=== PATIENT | female | born 1955 | race Caucasian/White ===

== ENCOUNTER 2016-06-16 13:07 | Emergency (ER) | payer OTHER ==
[~2016-06-16] VITALS: Ht 172.7 cm; Wt 95.1 kg
[2016-06-16 13:18] VITALS: TEMP 36.8; Ht 172.7 cm; Wt 95.1 kg
[2016-06-16] MEDS ORDERED: KETOROLAC TROMETHAMINE 30 MG/ML VIAL IV STA (13:30)
[2016-06-16] MEDS ORDERED: SODIUM CHLORIDE 0.9% 1000ML 1,000 ML IV STA (13:30)
[2016-06-16] MEDS ORDERED: SULF500T8 PO (13:38)
[2016-06-16] MEDS ORDERED: LEVO50TA PO (13:38)
--- NOTE | 2016-06-16 13:38 | EMERGENCY ROOM VISIT NOTE ---
History Report prepared by Christopher: Kris Goldberg Under the Supervision of: Dr. Attila Aponte M.D. First contact with patient: 13:23 Chief Complaint: BACK PAIN Stated Complaint: SCIATICA History of Present Illness The patient is a 61 year old female who presents to the Emergency Room with complaints of left buttock pain that began 3 weeks ago. She rates her pain a 9/ 10 in severity. Over these past weeks, she has seen a chiropractor five times and was placed onto two rounds of Prednisone. Her pain has been persistent through all of this. Her pain radiates into her leg with numbness to her foot. He pain worsens with movement, but it feels better when she is standing. It also feels better when she applies heat to the area. She did not have any trauma at this time. She denies any numbness in her buttock, bowel or urine control loss, fevers, or urinary symptoms. She wakes up in the night with diaphoresis occasionally. She also is experiencing nausea. She has a past medical history of Crohn's disease that she states has been going very well. She has never had surgery for her Crohn's. Source of History: patient Onset: 3 weeks ago Position: other (Left buttock) Symptom Intensity: 9/10 Quality: sharp Timing: constant Modifying Factors (Worsening): movement Modifying Factors (Relieving): heat, other (Standing) Associated Symptoms: + diaphoresis, + nausea, + numbness (in left foot, not buttocks), No diarrhea, No fevers, No hematochezia, No melena, No urinary symptoms Review of Systems See HPI for pertinent positives & negatives. A total of 10 systems reviewed and were otherwise negative. Past Medical & Surgical Medical Problems: (1) Crohn's disease Surgical Problems: (1) H/O tubal ligation Old medical records were reviewed. Nurse's notes were reviewed and I agree with. Family History Patient reports no known family medical history. Social History Smoking Status: Former Smoker Alcohol Use: other (Rarely) Drug Use: none Marital Status: Housing Status: lives with family Occupation Status: employed Current/Historical Medications Scheduled Calcium/Vitamin D (Os-Wali 500 Plus D), 1 TAB PO DAILY Cholecalciferol (D 1000), 1 TAB PO DAILY Levothyroxine Sodium (Synthroid), 50 MCG PO DAILY Sulfasalazine (Sulfazine), 500 MG PO DAILY Vedolizumab (Entyvio), Unknown Dose INJ Q8WK Allergies Coded Allergies: Ciprofloxacin (Unverified Allergy, Severe, OTHER, 06/16/16) BLEW OUT ACHILLES TENDON Sulfa Antibiotics (Unverified Allergy, Severe, HEADACHES, 06/16/16) Uncoded Allergies: ALCOHOL WIPES (Adverse Reaction, Severe, RASH, 06/16/16) Physical Exam Vital Signs Date Time Temp Pulse Resp B/P Pulse Ox O2 Delivery O2 Flow Rate FiO2 06/16/16 17:58 66 18 159/93 96 06/16/16 17:12 67 18 148/87 96 06/16/16 16:02 74 18 128/87 93 Room Air 06/16/16 13:18 36.8 105 20 117/80 96 Room Air Physical Exam General: Non-ill appearing middle aged female, Well developed well nourished in no acute distress, breathing comfortably on room air. Normal speech HEENT: Normal cephalic atraumatic. Pupils are equal round and reactive to light. Extraocular movements are intact. Oropharynx is pink with moist mucous membranes. No swelling of the mouth lips or tongue. Neck: Supple with a midline trachea. No meningeal signs or stiffness, no JVD or bruits. No Stridor. Chest: Clear to auscultation bilaterally. No wheezes or rhonchi. No increased work of breathing. Heart: regular rate and rhythm. Abdomen: Soft nontender, nondistended without rebound guarding or rigidity. Extremities: Tenderness to palpation of left S/I joint. Pain with left leg raise. No calf tenderness. Spine/Back. Non tender to palpation. No CVA tenderness Skin: Good turgor without rashes. Neurologic exam: Cranial nerves two through 12 are intact. Motor and sensation are intact and symmetrical throughout. Medical Decision & Procedures ER Provider Diagnostic Interpretation: Radiology results as stated below per my review and radiologist interpretation: MRI LUMBAR SPINE COMBINATION CLINICAL HISTORY: Persistent back pain. Possible discitis. TECHNIQUE: Sagittal and axial T1, T2 and STIR images were obtained. Imaging was performed before and after administration of 9 cc of intravenous Gadavist COMPARISON STUDY: No previous studies for comparison. OBSERVATIONS: The vertebral bodies and posterior elements appear intact. There is no abnormal bony signal present to suggest a marrow replacement process. L1-2: No disc protrusions or extrusions. No evidence of spinal canal or neural foraminal compromise. L2-3: There is a circumferential disc bulge with mild spinal stenosis. There is no significant foraminal narrowing L3-4: There is a mild circumferential disc bulge. There is facet joint arthropathy. There is mild spinal stenosis. L4-5: No disc protrusions or extrusions. No evidence of spinal canal or neural foraminal compromise. L5-S1: There is a left posterior lateral disc protrusion. This abuts the exiting left S1 nerve root. No abnormalities of the conus are visualized. Postgadolinium images demonstrate diffuse enhancement of the left S1 nerve root IMPRESSION: 1. No evidence of discitis or osteomyelitis 2. Diffuse enhancement of the left S1 nerve root 3. Multilevel spondylitic changes with mild spinal stenosis at the L2-3 and L3-4 levels. 4. Small left posterior lateral disc protrusion at the L5-S1. This abuts the left S1 nerve root Electronically signed by: Jaime Robison M.D. 06/16/2016 3:18 PM Dictated Date/Time: 06/16/2016 3:11 PM Laboratory Results 06/16/16 13:50 Red Blood Count 4.42, Mean Corpuscular Volume 98.2, Mean Corpuscular Hemoglobin 32.4, Mean Corpuscular Hemoglobin Concent 32.9, Mean Platelet Volume 10.2, Neutrophils (%) (Auto) 73.5, Lymphocytes (%) (Auto) 16.3, Monocytes (%) (Auto) 8.8, Eosinophils (%) (Auto) 0.9, Basophils (%) (Auto) 0.2, Neutrophils # (Auto) 7.22, Lymphocytes # (Auto) 1.60, Monocytes # (Auto) 0.86, Eosinophils # (Auto) 0.09, Basophils # (Auto) 0.02 06/16/16 13:50 Test 06/16/16 13:50 06/16/16 14:01 06/16/16 14:05 White Blood Count 9.82 K/uL (4.8-10.8) Red Blood Count 4.42 M/uL (4.2-5.4) Hemoglobin 14.3 g/dL (12.0-16.0) Hematocrit 43.4 % (37-47) Mean Corpuscular Volume 98.2 fL (80-100) Mean Corpuscular Hemoglobin 32.4 pg (25-34) Mean Corpuscular Hemoglobin Concent 32.9 g/dl (32-36) Platelet Count 361 K/uL (130-400) Mean Platelet Volume 10.2 fL (7.4-10.4) Neutrophils (%) (Auto) 73.5 % Lymphocytes (%) (Auto) 16.3 % Monocytes (%) (Auto) 8.8 % Eosinophils (%) (Auto) 0.9 % Basophils (%) (Auto) 0.2 % Neutrophils # (Auto) 7.22 K/uL (1.4-6.5) Lymphocytes # (Auto) 1.60 K/uL (1.2-3.4) Monocytes # (Auto) 0.86 K/uL (0.11-0.59) Eosinophils # (Auto) 0.09 K/uL (0-0.5) Basophils # (Auto) 0.02 K/uL (0-0.2) RDW Standard Deviation 53.7 fL (36.4-46.3) RDW Coefficient of Variation 14.9 % (11.5-14.5) Immature Granulocyte % (Auto) 0.3 % Immature Granulocyte # (Auto) 0.03 K/uL (0.00-0.02) Anion Gap 5.0 mmol/L (3-11) Est Creatinine Clear Calc Drug Dose 75.0 ml/min Estimated GFR () 74.9 Estimated GFR (Non- 64.6 BUN/Creatinine Ratio 17.4 (10-20) Calcium Level 9.9 mg/dl (8.5-10.1) Total Bilirubin 0.7 mg/dl (0.2-1) Direct Bilirubin 0.2 mg/dl (0-0.2) Aspartate Amino Transf (AST/SGOT) 19 U/L (15-37) Alanine Aminotransferase (ALT/SGPT) 27 U/L (12-78) Alkaline Phosphatase 79 U/L (45-117) Total Protein 8.3 gm/dl (6.4-8.2) Albumin 4.1 gm/dl (3.4-5.0) Lipase 106 U/L (73-393) Bedside D-Dimer 420 ng/mlFEU (0-450) Urine Color DK YELLOW Urine Appearance CLEAR (CLEAR) Urine pH 6.0 (4.5-7.5) Urine Specific [place] 1.022 (1.000-1.030) Urine Protein TRACE (NEG) Urine Glucose (UA) NEG (NEG) Urine Ketones TRACE (NEG) Urine Occult Blood NEG (NEG) Urine Nitrite NEG (NEG) Urine Bilirubin NEG (NEG) Urine Urobilinogen NEG (NEG) Urine Leukocyte Esterase MODERATE (NEG) Urine WBC (Auto) 10-30 /hpf (0-5) Urine RBC (Auto) 0-4 /hpf (0-4) Urine Hyaline Casts (Auto) 10-30 /lpf (0-5) Urine Epithelial Cells (Auto) >30 /lpf (0-5) Urine Bacteria (Auto) NEG (NEG) Laboratory studies as stated above per my review. Medications Administered Medications (Trade) Dose Ordered Sig/Rivas Route Start Time Stop Time Status Last Admin Dose Admin Sodium Chloride (Nss 1000ml) 1,000 ml @ 999 mls/hr Q1H1M STAT IV 06/16/16 13:30 06/16/16 14:30 DC 06/16/16 13:30 999 MLS/HR Ketorolac Tromethamine (Toradol Inj) 30 mg NOW STAT IV 06/16/16 13:30 06/16/16 13:34 DC 06/16/16 14:04 30 MG ED Course 1323: Past medical records reviewed. The patient was evaluated in room C2, and a complete history and physical examination were performed. 1330: Ordered Toradol Inj 30 mg IV, Sodium Chloride 1000 ml @ 999 mls/hr IV 1518: The patient is back from MRI. She looks okay. 1743: Upon reevaluation, the patient is resting. I discussed the results and treatment plan with her. She verbalized agreement of the treatment plan. The patient was discharged home. Medical Decision Differentials include sciatica, lumbar disc disease, infection, complication related to Crohn's disease, DVT, and electrolyte or metabolic abnormality. This patient comes in as described above. She was placed in room C2. She's having left back/buttock pain going down her leg. She has been on 2 courses steroids and this did help her feel better somewhat. It just hurts when she moves . No numbness or weakness or fever or chills . She has a history of Crohn's disease but has had no complications related to this. Denies change in bowel or bladder function. IV access was established and blood work was obtained. She has no white count or electrolyte or metabolic abnormalities. Her d-dimer is within normal limits and a low pretest probability makes DVT highly unlikely. She is neurologically and neurovascularly intact. She did a MRI she does have a disc at L5-S1 there is some inflammation S1 nerve root which is likely reactive. I discussed his doctor Sonia and he says that he she can follow-up with him in the office next week or potentially see with a pain management providers as she could potentially benefit from injection. She' s can use NSAIDs and her pillowcase cutter go in and talk to her and they're going to try to get her in within the next day or so at [facility] for further treatment and evaluation of her back pain. Impression Primary Impression: Sciatica Additional Impression: Lumbar disc disease Scribe Attestation The scribe's documentation has been prepared under my direction and personally reviewed by me in its entirety. I confirm that the note above accurately reflects all work, treatment, procedures, and medical decision making performed by me. Departure Information Dispostion Home / Self-Care Referrals Attila Marmolejo M.D. (PCP) Forms HOME CARE DOCUMENTATION FORM, IMPORTANT VISIT INFORMATION Patient Instructions My [facility] Additional Instructions Rest Be careful when getting up and down. Return if: Worsening of symptoms, shortness of breath, numbness or weakness, fever or chills, change in bowel or bladder function , any new problems or concerns Use ibuprofen 400 mg every 6 hours, take with food Follow-up with [facility] spine either early this week or next. You may be a candidate for a nerve block or injection Problem Qualifiers
[2016-06-16] MEDS ORDERED: VEDO1INJ INJ (13:39)
[2016-06-16] MEDS ORDERED: CHOL1TAB53 PO (13:40)
[2016-06-16] MEDS ORDERED: CALC500C70 PO (13:41)
[2016-06-16 14:07] LABS: HEMATOCRIT 43.4 % (37-47); MEAN CELL VOLUME 98.2 fL (80-100); MEAN CORPUSCULAR HEMOGLOBIN 32.4 pg (25-34); MEAN CORPUSCULAR HGB CONC 32.9 g/dl (32-36); MEAN PLATELET VOLUME 10.2 fL (7.4-10.4); PLATELET COUNT 361 K/uL (130-400); RED BLOOD COUNT 4.42 M/uL (4.2-5.4); WHITE BLOOD COUNT 9.82 K/uL (4.8-10.8)
[2016-06-16 14:25] LABS: BUN/CREATININE RATIO 17.4 (10-20); CALCIUM 9.9 mg/dl (8.5-10.1); CREATININE 0.95 mg/dl (0.60-1.20); POTASSIUM 3.9 mmol/L (3.5-5.1)
[2016-06-16 14:33] LABS: URINE APPEARANCE CLEAR (CLEAR); URINE COLOR DK YELLOW; URINE EPITHELIAL CELL AUTO >30 /lpf (0-5); URINE NITRITE NEG (NEG); URINE SPECIFIC GRAVITY 1.022 (1.000-1.030); UROBILINOGEN NEG (NEG)
[2016-06-16 14:34] LABS: BASO % 0.2 %; BASO ABS # 0.02 K/uL (0-0.2); COMPLETE YES; EOS % 0.9 %; IG% 0.3 %; LYMPH % 16.3 %; MONO % 8.8 %; NEUT % 73.5 %
[2016-06-16 14:43] LABS: MANUAL MICROSCOPIC REQUIRED? NO; REVIEW REQ? NO; URINE BILIRUBIN NEG (NEG)
[2016-06-16] MEDS ORDERED: GADAVIST IV PRN (15:15)
--- NOTE | 2016-06-16 15:20 | DIAGNOSTIC IMAGING REPORT ---
MRI LUMBAR SPINE COMBINATION CLINICAL HISTORY: Persistent back pain. Possible discitis. TECHNIQUE: Sagittal and axial T1, T2 and STIR images were obtained. Imaging was performed before and after administration of 9 cc of intravenous Gadavist COMPARISON STUDY: No previous studies for comparison. OBSERVATIONS: The vertebral bodies and posterior elements appear intact. There is no abnormal bony signal present to suggest a marrow replacement process. L1-2: No disc protrusions or extrusions. No evidence of spinal canal or neural foraminal compromise. L2-3: There is a circumferential disc bulge with mild spinal stenosis. There is no significant foraminal narrowing L3-4: There is a mild circumferential disc bulge. There is facet joint arthropathy. There is mild spinal stenosis. L4-5: No disc protrusions or extrusions. No evidence of spinal canal or neural foraminal compromise. L5-S1: There is a left posterior lateral disc protrusion. This abuts the exiting left S1 nerve root. No abnormalities of the conus are visualized. Postgadolinium images demonstrate diffuse enhancement of the left S1 nerve root IMPRESSION: 1. No evidence of discitis or osteomyelitis 2. Diffuse enhancement of the left S1 nerve root 3. Multilevel spondylitic changes with mild spinal stenosis at the L2-3 and L3-4 levels. 4. Small left posterior lateral disc protrusion at the L5-S1. This abuts the left S1 nerve root Electronically signed by: Jaime Robison M.D. 06/16/2016 3:18 PM Dictated Date/Time: 06/16/2016 3:11 PM
[2016-06-16 17:58] VITALS: BP 159/93; PULSE 66; O2SAT 96
[2016-06-29] MEDS ORDERED: KETO10TA PO (14:19)
[2016-06-29] MEDS ORDERED: HYDR-5688 PO (14:19)
== END 2016-06-16 17:58 | disposition home or self-care (01) ==
LOC: C.EDB 13:08 → C.EDC 17:58
DX: M54.30 Sciatica, unspecified side (principal); M51.36 Other intervertebral disc degeneration, lumbar region; K50.90 Crohn's disease, unspecified, without complications; Z98.51 Tubal ligation status; Z87.891 Personal history of nicotine dependence; Z79.899 Other long term (current) drug therapy; Z88.2 Allergy status to sulfonamides

== ENCOUNTER 2017-03-12 10:08 | Emergency (ER) | payer OTHER ==
[~2017-03-12] VITALS: Ht 172.7 cm; Wt 90.0 kg
[~2017-03-12 10:08] MED LIST: CALC500C70 PO; CHOL1TAB53 PO; LEVO50TA PO; SULF500T8 PO; VEDO1INJ INJ
[2017-03-12 10:12] VITALS: TEMP 36.6; Ht 172.7 cm; Wt 90.0 kg
[2017-03-12] MEDS ORDERED: AZAT50TA17 PO (10:29)
--- NOTE | 2017-03-12 10:56 | EMERGENCY ROOM VISIT NOTE ---
History Report prepared by Jonathanibe: Emely Morejon Under the Supervision of: Dr. Yovanny Dominguez M.D. First contact with patient: 10:20 Chief Complaint: KNEEPAIN Stated Complaint: FELL ON ICE AT WORK,RIGHT KNEE PAIN History of Present Illness The patient is a 62 year old female who presents to the Emergency Room with complaints of constant right knee pain since 0840 this morning. She states she slipped on ice this morning while walking into work and twisted her right knee. She rates her current discomfort as a 10/10 in severity. Movement worsens her discomfort and ice has provided minimal relief. She denies hitting her head or any LOC during the fall. The patient also denies any neck pain or abdominal pain. Source of History: patient Onset: 08 this morning Position: knee (right) Symptom Intensity: 11/16 Timing: constant Modifying Factors (Worsening): movement Modifying Factors (Relieving): ice Associated Symptoms: No LOC, No neck pain, No abdominal pain Review of Systems See HPI for pertinent positives and negatives. A total of ten systems were reviewed and were otherwise negative. Past Medical & Surgical Medical Problems: (1) Crohn's disease Surgical Problems: (1) H/O tubal ligation Family History Patient reports no known family medical history. Social History Smoking Status: Former Smoker Alcohol Use: other Drug Use: none Marital Status: Housing Status: lives with family Occupation Status: employed Current/Historical Medications Scheduled Azathioprine (Imuran), 0 PO QAM Cholecalciferol (D 1000), 1 TAB PO QAM Levothyroxine Sodium (Synthroid), 50 MCG PO QAM Sulfasalazine (Sulfazine), 500 MG PO QAM Vedolizumab (Entyvio), Unknown Dose INJ Q8WK Scheduled PRN Oxycodone Hcl (Oxycodone Hcl), 1 CAP PO QID PRN for Pain Allergies Coded Allergies: Ciprofloxacin (Unverified Allergy, Severe, OTHER, 03/12/17) BLEW OUT ACHILLES TENDON Sulfa Antibiotics (Unverified Allergy, Severe, HEADACHES, 03/12/17) Uncoded Allergies: ALCOHOL WIPES (Adverse Reaction, Severe, RASH, 06/16/16) Physical Exam Vital Signs Date Time Temp Pulse Resp B/P (MAP) Pulse Ox O2 Delivery O2 Flow Rate FiO2 03/12/17 11:47 62 18 148/85 96 03/12/17 10:12 36.6 73 17 143/90 98 Room Air Physical Exam GENERAL: Awake, alert, uncomfortable-appearing, in no distress HENT: Normocephalic, atraumatic. Oropharynx unremarkable. EYES: Normal conjunctiva. Sclera non-icteric. NECK: Supple. No nuchal rigidity. FROM. No JVD. RESPIRATORY: Clear to auscultation. CARDIAC: Regular rate, normal rhythm. Extremities warm and well perfused. Pulses equal. ABDOMEN: Soft, non-distended. No tenderness to palpation. No rebound or guarding. No masses. RECTAL: Deferred. MUSCULOSKELETAL: Chest examination reveals no tenderness. The back is symmetrical on inspection without obvious abnormality. There is no CVA tenderness to palpation. No joint edema. LOWER EXTREMITIES: Tenderness on the medial and lateral aspects of the right patella, mild edema, active and passive ROM intact, but causes pain. Distal pulses, motor and sensory intact. Calves are equal size bilaterally and non- tender. No discoloration. NEURO: Normal sensorium. No sensory or motor deficits noted. SKIN: No rash or jaundice noted. Medical Decision & Procedures ER Provider Diagnostic Interpretation: Radiology results as stated below per my review and radiologist interpretation: R KNEE 3 VIEWS CLINICAL HISTORY: Right knee pain following fall. COMPARISON: None FINDINGS: Note is made of moderate lateral patellar tilt. There is a large right knee joint effusion with lipohemarthrosis. There is an acute minimally displaced fracture of the medial aspect of the patella. No additional fractures are identified. IMPRESSION: Acute minimally displaced fracture of the medial patella with lateral patellar tilt and a large right knee joint effusion with lipohemarthrosis. The findings suggest a transient lateral patellar dislocation with reduction and resultant osteochondral injury of the patella. Electronically signed by: Bar Hauser M.D. 03/12/2017 10:59 AM Medications Administered Medications (Trade) Dose Ordered Sig/Rivas Route Start Time Stop Time Status Last Admin Dose Admin Oxycodone/ Acetaminophen (Percocet 5-325mg Tab) 1 tab NOW ONCE PO 03/12/17 11:00 03/12/17 11:02 DC 03/12/17 11:13 1 TAB ED Course 1051: The patient was evaluated in room B11A. A complete history and physical exam was performed. 1140: I reevaluated the patient. She is feeling better and resting comfortably. I discussed her results and discharge instructions and she verbalized complete understanding and agreement. Medical Decision I reviewed the patient's past medical history, medications, and the nursing notes as described above. The patient's presentation and history were concerning for fracture, dislocation -relocation of the patella, ligamentous injury and soft tissue injury. The patient is a 62 y/o woman who presents to the emergency department with right knee pain after a mechanical fall on ice per HPI. On arrival the patient is in NAD, AFVSS. Right knee with medial and lateral ttp with mild edema. Pain with active and passive ROM. Distal PMS intact. Xray demonstrates "minimally displaced fracture of the medial patella ...and large right knee joint effusion with lipohemarthrosis" c/w patellar dislocation-relocation. Patient is able to extend at the knee albeit painful. Plan for knee immobilizer and walker. Ortho f/u. Findings and plan for follow-up reviewed with patient. Patient agreeable and d/c'd per discharge instructions. [place] Drug Monitoring Program Search Results: patient reviewed within database Drug Monitoring Findings: no concerns Medication Reconcilliation Current Medication List: was personally reviewed by me Blood Pressure Screening Patient's blood pressure: Elevated blood pressure Blood pressure disposition: Elevated BP felt to be situational Impression Primary Impression: Patellar fracture Scribe Attestation The scribe's documentation has been prepared under my direction and personally reviewed by me in its entirety. I confirm that the note above accurately reflects all work, treatment, procedures, and medical decision making performed by me. Departure Information Dispostion Home / Self-Care Prescriptions Oxycodone Hcl (OXYCODONE HCL) 5 Mg Cap 1 CAP PO QID Y for Pain, #10 CAP Prov: Yovanny Dominguez M.D. 03/12/17 Referrals No Doctor, Assigned (PCP) Lorenzo Biggs, DO Patient Instructions ED Fx Patella, ED Immobilizer Knee, My [facility] Additional Instructions Please follow up with orthopedics, Dr. Biggs, on Tuesday for re-evaluation. You have a patellar fracture. Otherwise, your exam and xray did not show signs of an emergent condition at this time. Acetaminophen or ibuprofen for pain and fevers as needed. Knee immobilizer. Oxycodone from breakthrough pain as needed. Drink plenty of fluids to ensure hydration. Return to the emergency department for worsening symptoms as described in the accompanying instructions. Work Instructions Return To Work: 1 week Additional Instructions: Please excuse from work or allow modified duties for 1 week and thereafter as indicated by patient's doctor.
[2017-03-12] MEDS ORDERED: OXYCODONE/ACETAMINOPHEN 5-325 TAB PO ONE (11:00)
--- NOTE | 2017-03-12 11:01 | DIAGNOSTIC IMAGING REPORT ---
R KNEE 3 VIEWS CLINICAL HISTORY: Right knee pain following fall. COMPARISON: None FINDINGS: Note is made of moderate lateral patellar tilt. There is a large right knee joint effusion with lipohemarthrosis. There is an acute minimally displaced fracture of the medial aspect of the patella. No additional fractures are identified. IMPRESSION: Acute minimally displaced fracture of the medial patella with lateral patellar tilt and a large right knee joint effusion with lipohemarthrosis. The findings suggest a transient lateral patellar dislocation with reduction and resultant osteochondral injury of the patella. Electronically signed by: Bar Hauser M.D. 03/12/2017 10:59 AM Dictated Date/Time: 03/12/2017 10:56 AM
[2017-03-12 11:47] VITALS: BP 148/85; PULSE 62; O2SAT 96
[2017-03-12] MEDS ORDERED: OXYC1CAP5 PO (12:15)
== END 2017-03-12 11:48 | disposition home or self-care (01) ==
LOC: C.EDB 10:13
DX: S82.001A Unspecified fracture of right patella, initial encounter for closed fracture (principal); W00.0XXA Fall on same level due to ice and snow, initial encounter; X50.9XXA Other and unspecified overexertion or strenuous movements or postures, initial encounter; Y92.89 Other specified places as the place of occurrence of the external cause; Z98.51 Tubal ligation status; K50.90 Crohn's disease, unspecified, without complications; Z87.891 Personal history of nicotine dependence; Z79.899 Other long term (current) drug therapy

== ENCOUNTER 2021-10-29 20:34 | Inpatient (IN) ==
[2021-10-29] MEDS ORDERED: SODIUM CHLORIDE 0.9% 1000ML 1,000 ML IV STA (21:29)
[2021-10-29] MEDS ORDERED: MoRPHine SULFATE 4 MG/ML 1 ML CARP\\VIAL IV PRN (21:29)
[2021-10-29] MEDS ORDERED: ONDANSETRON INJ 2 MG/ML 2 ML VIAL IV STA (21:29)
--- NOTE | 2021-10-29 21:38 | Emergency Department Note ---
Impression & Plan Abdominal pain, Small bowel obstruction ED Provider Note NAME: KAITLYNN ELLSWORTH AGE: 66 SEX: F : 1955 ARRIVES VIA: Walk-In INFORMANT: Patient, ED PROVIDER(S): Zac Shore DO CHIEF COMPLAINT: Abdominal pain HPI: The patient is a 66-year-old female who presented to the emergency department for an evaluation of epigastric pain. The patient describes epigastric pain which began earlier today. She states that it got worsened after eating food. She does not use alcohol. She denies have any fever but does note nausea. Patient does have a history of Crohn's disease. She has been compliant with her outpatient medications. She denies having any recent trauma. She is often seen by her family doctor for the symptoms. She states the pain is worsened with ambulation as well as palpation over the upper abdomen. She has not had a history of Crohn's related abscess or fistula that she knows of. She does note that the pain does radiate to her back. ROS: See above HPI for pertinent positives & negatives. A total of 10 systems reviewed and were otherwise negative. PAST MEDICAL HISTORY: See Below PAST SURGICAL HISTORY: See Below FAMILY HISTORY: See Below SOCIAL HISTORY: See Below HOME MEDICATIONS: See Below ALLERGIES: See Below VITALS: See Below PHYSICAL EXAMINATION: GENERAL: Patient is awake alert in no acute distress patient is resting comfortably and showing no signs of anxiety EYES: The conjunctivae are clear. The pupils are round and reactive. EARS, NOSE, MOUTH AND THROAT: The nose is without any evidence of any deformity. Mucous membranes are moist. Tongue is midline. NECK: The neck is nontender and supple. RESPIRATORY: Normal respiratory effort is noted there is no evidence of wheezing rhonchi or rales CARDIOVASCULAR: Regular rate and rhythm noted there no murmurs rubs or gallops normal S1 normal S2. GASTROINTESTINAL: The abdomen is soft and mildly distended. There is epigastric tenderness to palpation. There is no specific guarding rigidity. MUSCULOSKELETAL/EXTREMITIES: There is no evidence of gross deformity full range of motion is noted in the hips and shoulders. SKIN: There is no obvious evidence of any rash. There are no petechiae, pallor or cyanosis noted. NEUROLOGIC: Patient is awake alert and oriented x3 MEDICAL DECISION MAKING: The patient is a 66-year-old female who presented to the emergency department for an evaluation of abdominal pain. Patient's history and physical exam appear to be consistent with significant abdominal tenderness. I discussed the patient's laboratory and radiographic studies with her. She was treated with IV fluids and IV pain medication in the emergency department. She was reevaluated multiple times. She was found to have signs of a small bowel obstruction on CT. She is not actively vomiting. I discussed her case with the on-call [facility]. They have agreed to evaluate the patient in the emergency department for further management and disposition. Triage Nursing notes reviewed. Prior medical records reviewed Vital Signs: reviewed and remarkable for no significant abnormalities Differential diagnosis: Etiologies such as appendicitis, diverticulitis, obstruction, inflammatory bowel disease, renal colic, PUD, biliary pathology, pancreatitis, mesenteric ischemia, aortic pathology, infections, genitourinary, UTI, perforated viscus, as well as others were entertained. ER treatment provided: See below Diagnostics interpreted by me: ECG: EKG was obtained in the emergency department. My interpretation is normal sinus rhythm at 62 bpm. There is no ectopy. There is no acute ST segment abnormalities noted. No previous tracing was available. Cardiac Monitoring: An order was placed for continuous cardiac monitoring. The monitor shows a rate of 67 bpm with sinus rhythm. Laboratory studies: As stated above and show below. Imaging studies: See below Consultation(s): I discussed this case with Dr. Carey is on for the [facility] group. Past Med/Surg History Medical History Chronic hepatitis C COVID-19 Crohn's disease Hypothyroid Polyp of colon, adenomatous Ulcer of lower limb Vasculitis Surgical History H/O colectomy Dr. Jacy Daly. Partial colectomy with anastomosis 04/03/18 H/O inguinal hernia repair History of skin surgery lesion biopsy 09/13/2000.... vasculitis and panniculitis with foci of vascular thrombosis Hx of colonoscopy with biopsy 10/31/08 09/06/2013- Dr. Whittington 09/07/2013: Dr. Sarmiento 04/04/2014: Dr. Whittington 12/19/2014: Dr. Whittington 08/20/16: Dr. Whittington 09/09/2017: ulcerated stricture Dr. Whittington 12/14/18: DR. Whittington chronic colitis, benign polyp Tubal ligation status 1979 Family History Father Colorectal cancer Social History Smoking Status: Former smoker packs per day: 1; Years Smoked: 30; Hx Alcohol Use: Yes Preferred Language: Montenegrin marital status: How many Children do You have Comment: 3 Feels Safe at Home: Yes Allergies Allergies Allergy/AdvReac Type Severity Reaction Status Date / Time ciprofloxacin [Cipro] AdvReac Intermediate Headache Verified 02/18/21 10:56 Sulfa (Sulfonamide AdvReac Intermediate HEADACHES Verified 02/18/21 10:56 Antibiotics) ALCOHOL WIPES AdvReac Severe RASH Uncoded 02/18/21 10:56 Home Meds Home Medications Medication Instructions Recorded Confirmed adalimumab 40 mg/0.8 mL 40 mg subcut WK 09/20/19 02/18/21 subcutaneous syringe kit (Humira) cyanocobalamin (vitamin B-12) 1,000 mcg PO DAILY 09/20/19 02/18/21 1,000 mcg capsule levothyroxine 50 mcg capsule 50 mcg PO DAILY 09/20/19 02/18/21 valacyclovir 500 mg tablet 1,000 mg PO Q12H PRN rash 09/20/19 02/18/21 (Valtrex) cholecalciferol (vitamin D3) 50 50 mcg PO DAILY 02/18/21 02/18/21 mcg (2,000 unit) capsule (Vitamin D3) multivitamin 1 tab PO DAILY 02/18/21 02/18/21 Results & Data (ED) Vital Signs Vital Signs - 24 hr 10/29/21 20:36 10/29/21 21:41 10/29/21 21:41 Temperature 36.5 C Temperature Source Temporal Artery Scan Pulse Rate 80 Pulse Rate [Finger] 64 Respiratory Rate 20 17 Respiratory Effort / Characteristics Non-Labored Respiratory Depth Normal Normal Respiratory Pattern Regular Blood Pressure 142/88 H Blood Pressure [Right Arm] 156/79 H Blood Pressure Mean 106 Blood Pressure Mean [Right Arm] 104 Pulse Oximetry 96 98 98 Oxygen Delivery Method Room Air Room Air Room Air Sepsis New/Unexplained Change in Mental Status N/A Sepsis Action Taken by Nursing No Action Required 10/29/21 23:00 Temperature Temperature Source Pulse Rate Pulse Rate [Finger] 67 Respiratory Rate 20 Respiratory Effort / Characteristics Respiratory Depth Respiratory Pattern Blood Pressure Blood Pressure [Right Arm] 131/77 Blood Pressure Mean Blood Pressure Mean [Right Arm] 95 Pulse Oximetry 96 Oxygen Delivery Method Sepsis New/Unexplained Change in Mental Status Sepsis Action Taken by Long-Term Medications Current Medication List: was personally reviewed by me Laboratory Data Attestation: I reviewed the patient's lab results. Result diagrams: 10/29/21 21:30 10/29/21 21:30 Lab Results 10/29/21 10/29/21 Range/Units 21:30 21:30 WBC 12.19 H (4.8-10.8) K/ul RBC 5.11 (3.93-5.22) M/uL Hgb 14.8 (12.0-16.0) g/dl Hct 43.9 (34.1-44.9) % MCV 85.9 (80.0-100.0) fL MCH 29.0 (25.0-34.0) pg MCHC 33.7 (32.0-36.0) g/dL RDW Std Deviation 41.6 (36.4-46.3) fL RDW Coeff of Karmen 13.2 (11.5-14.5) % Plt Count 270 (130-400) K/uL MPV 10.9 (9.4-12.3) fL Immature Gran % (Auto) 0.3 % Neut % (Auto) 66.4 % Lymph % (Auto) 23.9 % Noble % (Auto) 5.5 % Eos % (Auto) 3.4 % Baso % (Auto) 0.5 % Neut # (Auto) 8.09 H (1.4-6.5) K/uL Lymph # (Auto) 2.91 (1.2-3.4) K/uL Noble # (Auto) 0.67 (0.24-0.82) K/uL Eos # (Auto) 0.42 (0-0.50) K/uL Baso # (Auto) 0.06 (0-0.2) K/uL Immature Gran # (Auto) 0.04 H (0.00-0.02) K/uL Sodium 141 (136-145) mmol/L Potassium 3.7 (3.5-5.1) mmol/L Chloride 105 (98-107) mmol/L Carbon Dioxide 30 (21-32) mmol/L Anion Gap 6 (3-11) BUN 24 H (6-23) mg/dl Creatinine 1.00 (0.6-1.2) mg/dl Est Cr Clr Drug Dosing 67.9 ml/min Est GFR ( Amer) 68.0 ml/min Est GFR (Non-Af Amer) 58.7 ml/min BUN/Creatinine Ratio 24.0 H (10-20) Glucose 107 H (70-99(Fasting)) mg/dl Calcium 10.1 (8.5-10.1) mg/dl Total Bilirubin 0.4 (0.2-1.0) mg/dl AST 19 (13-39) U/L ALT 19 (7-52) U/L Alkaline Phosphatase 55 (34-104) U/L Troponin I High Sens 4.8 (0-14) pg/ml Total Protein 7.6 (6.0-8.3) gm/dl Albumin 4.5 (3.4-5.0) gm/dl Globulin 3.1 (2.5-4.0) gm/dl Albumin/Globulin Ratio 1.5 (0.9-2) Lipase 17 (11-82) U/L Administered Medications Morphine Sulfate (Morphine Sulfate 4 Mg/Ml 1 Ml Carp\Vial) 4 mg IV Q15M PRN PRN Reason: Pain Stop: 11/12/21 21:28 Last Admin: 10/29/21 21:38 Dose: 4 mg Documented By: JAQUI Discontinued Medications Sodium Chloride (Nss 1000ml) 1,000 mls @ 999 mls/hr IV .Q1H1M STA Stop: 10/29/21 22:29 Last Infusion: 10/29/21 22:52 Dose: 0 mls/hr Documented By: Admin: 10/29/21 21:38 Dose: 999 mls/hr Documented By: JAQUI Ioversol (Optiray 350 100ml) 100 ml IV ONCE ONE Stop: 10/29/21 23:15 Last Admin: 10/29/21 23:14 Dose: 93 ml Documented By: SEBAS Ondansetron HCl (Ondansetron Inj 2 Mg/Ml 2 Ml Vial) 4 mg IV NOW STA Stop: 10/29/21 21:30 Last Admin: 10/29/21 21:38 Dose: 4 mg Documented By: OAJordi Imaging Data Radiologist's Impression: Patient: KAITLYNN ELLSWORTH (Female) : 55 Status: ER Date: 10/29/21 23:24 Room #: History: PAIN AT UPPER ABD Slices: [id number] Priors: Tech: Reymundo Orozco @ [phone] Exams: CT ABDOMEN & PELVIS With Contrast Contrast: IV Amt: 93 ML OPTIRAY 300 Accession Numbers: [id number] Referring Physician: REFERRED SELF Preliminary Findings Only See Final Report For Complete Findings CT ABDOMEN & PELVIS With Contrast: Comparison: None. Mild posterior dependent atelectasis otherwise clear lung bases. Normal cardiac size. Normal liver, gallbladder and biliary system. Normal spleen, pancreas and bilateral adrenal glands. Normal bilateral kidneys. Atherosclerotic disease of aorta with no aneurysm. Normal stomach. Distention of multiple small bowel loops more significant at the level of the pelvis reaching maximum diameter of 3.4 cm concerning for small bowel obstruction with indeterminate size of transition and likely at the level of the lower pelvis at the mid small bowel level. Distinct appendix not visualized with no inflammation to suggest appendicitis. The descending colon is decompressed. Postoperative changes along the descending colon with anastomotic sutures suggestive of previous surgery, clinical correlation recommended. Normal urinary bladder. Status post hysterectomy. Osteopenia along with degenerative disease of the spine. No spondylolisthesis or acute fracture. Radiologist: Gabbi Dumont MDB Study ready at 23:26 and initial results transmitted at 00:38 Discharge Plan Visit Data Chief Complaint: Abdominal Pain Stated Complaint: ABDOMINAL PAIN, BACK PAIN ED Provider: Zac Shore Discharge Problem: Abdominal pain, Small bowel obstruction Patient Disposition: Being Evaluated by Hospitalist Forms Stand Alone Forms: My [facility] Prescriptions Prescriptions: No Action Humira 40 mg/0.8 mL syringe kit 40 mg subcut WK levothyroxine 50 mcg capsule 50 mcg PO DAILY cyanocobalamin (vitamin B-12) 1,000 mcg capsule 1,000 mcg PO DAILY valacyclovir [Valtrex] 500 mg tablet 1,000 mg PO Q12H PRN (Reason: rash) multivitamin Tablet 1 tab PO DAILY cholecalciferol (vitamin D3) [Vitamin D3] 50 mcg (2,000 unit) Capsule 50 mcg PO DAILY Referrals Referrals: Cristal Rodrigues DO [Primary Care Provider] - : Abdominal pain Qualifiers: Abdominal location: generalized Qualified Code(s): R10.84 - Generalized abdominal pain
[2021-10-29 21:43] LABS: Basophils # (auto) 0.06 K/uL (0-0.2); Basophils % (auto) 0.5 %; Eosinophils # (auto) 0.42 K/uL (0-0.50); Eosinophils % (auto) 3.4 %; Hematocrit (blood only) 43.9 % (34.1-44.9); Hemoglobin 14.8 g/dl (12.0-16.0); Immature Granulocytes # (auto) 0.04 K/uL (0.00-0.02); Immature Granulocytes % (auto) 0.3 %; Lymphocytes # (auto) 2.91 K/uL (1.2-3.4); Lymphocytes % (auto) 23.9 %; Mean Corpuscular Hgb Conc 33.7 g/dL (32.0-36.0); Mean Corpuscular Volume 85.9 fL (80.0-100.0); Mean Platelet Volume 10.9 fL (9.4-12.3); Monocytes # (auto) 0.67 K/uL (0.24-0.82); Monocytes % (auto) 5.5 %; Neutrophils # (auto) 8.09 K/uL (1.4-6.5); Neutrophils % (auto) 66.4 %; Platelet Count 270 K/uL (130-400); RDW Coefficient of Variation 13.2 % (11.5-14.5); RDW Standard Deviation 41.6 fL (36.4-46.3); Red Blood Count 5.11 M/uL (3.93-5.22); White Blood Count 12.19 K/ul (4.8-10.8)
[2021-10-29 22:19] LABS: Albumin Globulin Ratio 1.5 (0.9-2); Albumin Level 4.5 gm/dl (3.4-5.0); Bilirubin,Total 0.4 mg/dl (0.2-1.0); Calcium 10.1 mg/dl (8.5-10.1); Creatinine Clr Calc Pharmacy 67.9 ml/min; Est GFR (Non-African American) 58.7 ml/min; Globulin 3.1 gm/dl (2.5-4.0); Potassium 3.7 mmol/L (3.5-5.1); Total Protein 7.6 gm/dl (6.0-8.3)
[2021-10-29 22:25] LABS: Troponin I High Sensitivity 4.8 pg/ml (0-14)
[2021-10-29] MEDS ORDERED: OPTIRAY 350 100ml IV ONE (23:14)
[2021-10-30 00:37] LABS: Appearance Urine Clear (Clear); Bacteria Urine Automated Negative (Negative); Bilirubin Urine Negative (Negative); Blood Urine Trace (Negative); Color Urine Yellow; Glucose Urine UA Negative (Negative); Ketones Urine Negative (Negative); Leukocyte Esterase Urine 3+ (Negative); Nitrite Urine Negative (Negative); Protein Urine Negative (Negative); RBC Urine Automated 0-4 /hpf (0-4); Specific Gravity Urine > 1.045 (1.000-1.030); Urobilinogen Urine Negative (Negative); WBC Urine Automated >30 /hpf (0-5); pH Urine 6.5 (4.5-7.5)
--- NOTE | 2021-10-30 00:56 | History & Physical Report ---
Date of Service October 30, 2021 Assessment & Plan (1) Small bowel obstruction: Plan: hx Crohn's disease with left-sided colonic stricture status post surgery currently on Humira, HTN, stable hypothyroidism, euthyroid as of recent outpatient TSH HCV status post treatment past tobacco abuse GMF Bowel rest, IVF NGT decompression if with emesis General Surgery consult Re: SBO DVT prophylaxis. Lovenox subcu Full code Text document was generated using edPULSE voice recognition software. It may contain grammatical or spelling errors. Kindly contact undersigned for clarification of any documentation item in question. History of Present Illness Chief Complaint: Abdominal pain Primary Care Provider: Cristal Rodrigues DO History obtained from patient and records. Medical history significant for HTN, hypothyroidism, Crohn's disease with left- sided colonic stricture status post surgery currently on Humira, history of vasculitis, HCV status post treatment, past tobacco abuse. Last confinement [facility] last month under Gynecology service for elective total vaginal hysterectomy with colporrhaphy/sling procedure for incomplete uterovaginal prolapse/stress urinary incontinence. Unremarkable postop course. One day history of achy epigastric pain with nausea symptoms. Good bowel movem ent. No fever, no chills, no chest pain, no shortness of breath. 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 Allergies Allergy/AdvReac Type Severity Reaction Status Date / Time ciprofloxacin [Cipro] AdvReac Intermediate Headache Verified 02/18/21 10:56 Sulfa (Sulfonamide AdvReac Intermediate HEADACHES Verified 02/18/21 10:56 Antibiotics) ALCOHOL WIPES AdvReac Severe RASH Uncoded 02/18/21 10:56 Home Medications Medication Instructions Recorded Confirmed Type adalimumab 40 mg/0.8 mL 40 mg subcut WK 09/20/19 02/18/21 History subcutaneous syringe kit (Humira) cyanocobalamin (vitamin B-12) 1,000 mcg PO DAILY 09/20/19 02/18/21 History 1,000 mcg capsule levothyroxine 50 mcg capsule 50 mcg PO DAILY 09/20/19 02/18/21 History cholecalciferol (vitamin D3) 50 50 mcg PO DAILY 02/18/21 02/18/21 History mcg (2,000 unit) capsule (Vitamin D3) Past Med/Surg History Medical History Chronic hepatitis C COVID-19 Crohn's disease Hypothyroid Polyp of colon, adenomatous Ulcer of lower limb Vasculitis Surgical History H/O colectomy Dr. Jacy Daly. Partial colectomy with anastomosis 04/03/18 H/O inguinal hernia repair History of skin surgery lesion biopsy 09/13/2000.... vasculitis and panniculitis with foci of vascular thrombosis Hx of colonoscopy with biopsy 10/31/08 09/06/2013- Dr. Whittington 09/07/2013: Dr. Sarmiento 04/04/2014: Dr. Whittington 12/19/2014: Dr. Whittington 08/20/16: Dr. Whittington 09/09/2017: ulcerated stricture Dr. Whittington 12/14/18: DR. Whittington chronic colitis, benign polyp Tubal ligation status 1979 Family History Father Colorectal cancer Social History Smoking Status: Former smoker packs per day: 1; Years Smoked: 30; Hx Alcohol Use: Yes Alcohol type: beer Hx Substance Use: No Preferred Language: Emir[place] Communication Ability: Effective Branding Specialist Required: Yes Beliefs That Will Affect Care: None marital status: Current Living Situation: Spouse How many Children do You have Comment: 3 Feels Safe at Home: Yes Safety Concerns: Feels Safe At This Time Assistive Devices: Denture - Upper and Glasses Review of Systems Review of Systems: As per HPI, all other systems reviewed and negative Physical Exam Physical Exam: GENERAL: Comfortable, obese, slightly anxious, dysphonic, no respiratory distress SKIN: Normal color, warm HEENT: [place] palpebral conjunctivae, no ptosis, dry buccal mucosa NECK : Supple, short neck, no tenderness CHEST : CTA, no tenderness HEART : RRR, no obvious murmurs ABDOMEN: Some distention, minimal epigastric tenderness EXTREMITIES : No LE swelling/tenderness, no other conspicuous deformities noted NEUROLOGIC : Coherent, no facial asymmetry, no other gross focality Results & Data Results & Data ([facility]) Vital Signs (Past 12 Hours) Vital Signs Temp Pulse Pulse Resp BP BP Pulse Ox 10/29/21 23:00 67 20 131/77 96 10/29/21 21:41 98 10/29/21 21:41 64 17 156/79 H 98 10/29/21 20:36 36.5 C 80 20 142/88 H 96 O2 Del Method 10/29/21 23:00 10/29/21 21:41 Room Air 10/29/21 21:41 Room Air 10/29/21 20:36 Room Air Laboratory Results Laboratory Results WBC 12.19 K/ul (4.8-10.8) H 10/29/21 21:30 RBC 5.11 M/uL (3.93-5.22) 10/29/21 21:30 Hgb 14.8 g/dl (12.0-16.0) 10/29/21 21:30 Hct 43.9 % (34.1-44.9) 10/29/21 21:30 MCV 85.9 fL (80.0-100.0) 10/29/21 21:30 MCH 29.0 pg (25.0-34.0) 10/29/21 21:30 MCHC 33.7 g/dL (32.0-36.0) 10/29/21 21:30 RDW Std Deviation 41.6 fL (36.4-46.3) 10/29/21 21:30 RDW Coeff of Karmen 13.2 % (11.5-14.5) 10/29/21 21:30 Plt Count 270 K/uL (130-400) 10/29/21 21:30 MPV 10.9 fL (9.4-12.3) 10/29/21 21:30 Immature Gran % (Auto) 0.3 % 10/29/21 21:30 Neut % (Auto) 66.4 % 10/29/21 21:30 Lymph % (Auto) 23.9 % 10/29/21 21:30 Scott % (Auto) 5.5 % 10/29/21 21:30 Eos % (Auto) 3.4 % 10/29/21 21:30 Baso % (Auto) 0.5 % 10/29/21 21:30 Neut # (Auto) 8.09 K/uL (1.4-6.5) H 10/29/21 21:30 Lymph # (Auto) 2.91 K/uL (1.2-3.4) 10/29/21 21:30 Scott # (Auto) 0.67 K/uL (0.24-0.82) 10/29/21 21: Eos # (Auto) 0.42 K/uL (0-0.50) 10/29/21 21:30 Baso # (Auto) 0.06 K/uL (0-0.2) 10/29/21 21: Immature Gran # (Auto) 0.04 K/uL (0.00-0.02) H 10/29/21 21:30 Sodium 141 mmol/L (136-145) 10/29/21 21: Potassium 3.7 mmol/L (3.5-5.1) 10/29/21 21: Chloride 105 mmol/L (98-107) 10/29/21 21: Carbon Dioxide 30 mmol/L (21-32) 10/29/21 21:30 Anion Gap 6 (3-11) 10/29/21: BUN 24 mg/dl (6-23) H 10/29/21 21:30 Creatinine 1.00 mg/dl (0.6-1.2) 10/29/21 21: Est Cr Clr Drug Dosing 67.9 ml/min 10/29/21 21:30 Est GFR ( Amer) 68.0 ml/min 10/29/21 21:30 Est GFR (Non-Af Amer) 58.7 ml/min 10/29/21 21:30 BUN/Creatinine Ratio 24.0 (10-20) H 10/29/21 21: Glucose 107 mg/dl (70-99(Fasting)) H 10/29/21 21:30 Calcium 10.1 mg/dl (8.5-10.1) 10/29/21 21: Total Bilirubin 0.4 mg/dl (0.2-1.0) 10/29/21: AST 19 U/L (13-39) 10/29/21 21:30 ALT 19 U/L (7-52) 10/29/21 21:30 Alkaline Phosphatase 55 U/L (34-104) 10/29/21 21:30 Troponin I High Sens 4.8 pg/ml (0-14) 10/29/21 21:30 Total Protein 7.6 gm/dl (6.0-8.3) 10/29/21: Albumin 4.5 gm/dl (3.4-5.0) 10/29/21: Globulin 3.1 gm/dl (2.5-4.0) 10/29/21 21: Albumin/Globulin Ratio 1.5 (0.9-2) 10/29/21: Lipase 17 U/L (11-82) 10/29/21 21:[address] abdomen pelvis initial read: Mild posterior dependent atelectasis otherwise clear lung bases. Normal cardiac size. Normal liver, gallbladder and biliarysystem. Normal spleen, pancreas and bilateral adrenal glands. Normal bilateral kidneys. Atherosclerotic disease of aortawith no aneurysm. Normal stomach. Distention of multiple small bowel loops more significant at the level of the pelvis reaching maximumdiameter of 3.4 cmconcerning for small bowel obstruction with indeterminate size of transition and likelyat the level of the lower pelvis at the mid small bowel level. Distinct appendix not visualized with no inflammation to suggest appendicitis. The descending colon is decompressed. Postoperative changes along the descending colon with anastomotic sutures suggestive of previous surgery, clinical correlation recommended. Normal urinarybladder. Status post hysterectomy. Osteopenia along with degenerative disease of the spine. No spondylolisthesis or acute fracture. EKG as per my interpretation : 60, NSR, normal axis, no ischemia, low voltage
[2021-10-30] MEDS ORDERED: ONDANSETRON INJ 2 MG/ML 2 ML VIAL IV STA (01:02)
[2021-10-30] MEDS ORDERED: MoRPHine SULFATE 4 MG/ML 1 ML CARP\\VIAL ONE (01:06)
[2021-10-30] MEDS ORDERED: LACTATED RINGER'S 1,000 ML IV STA (01:08)
[2021-10-30] MEDS ORDERED: PROMETHAZINE HCL 12.5 MG in SODIUM CHLORIDE 0.9% 50 ML IV PRN (01:33)
[2021-10-30] MEDS ORDERED: LORazepam 0.5 MG TAB PO PRN (01:33)
[2021-10-30] MEDS ORDERED: KETOROLAC TROMETHAMINE 15 MG/ML VIAL IV PRN (01:33)
--- NOTE | 2021-10-30 03:13 | Surgery Consultation ---
Date of Consultation October 30, 2021 Assessment & Plan (1) Small bowel obstruction: The patient has been admitted on the hospitalist service. We recommend proceeding as follows: Implement n.p.o. status Provide analgesics Provide antiemetics Provide IV fluid for hydration Discussed with the patient that she may require an NG tube for gastric decompression. At the present time the patient prefers to avoid this. As her abdominal exam is benign and she has not had any nausea or vomiting for a few hours I told her we can withhold this modality for now, but if she has any worsening of her abdominal exam, worsening pain, or any further nausea or vomiting vomiting ensue we will need to place an NG tube. She did express her understanding Additional recommendations be forthcoming based on her clinical course as unfolds Supervising Physician Co-Signing Physician Notes I personally saw and evaluated the patient with Bassam Coleman PA-C and agree with the assessment and plan. 66-year-old female with a history of partial colectomy for Crohn's disease, ventral hernia repair with mesh here with partial small bowel obstruction CT images and results personally viewed by myself, no discrete transition point seen She is currently without abdominal pain and states she is passing some flatus We will keep her n.p.o. until any significant flatus We will continue to follow her progress while she is in the hospital No plans for any surgical intervention at this time History of Present Illness Reason for Consultation: Small bowel obstruction History of Present Illness This is a 66-year-old female who presented to the emergency department secondary to abdominal pain that began approximately 24 hours ago. She notes that the pain is located primarily in the epigastric region of her abdomen. She says it does radiate somewhat to her back. She does not note any modifying factors. She has had associated nausea and vomiting with her most recent emesis being while she was in the emergency department. She does note that she has been passing a small amount of flatus since arrival to the emergency department. The patient reports history of prior abdominal surgeries. Approximately 3 years ago the patient did have a small bowel obstruction related to Crohn's disease. She was told that she had scar tissue and inflammation related to her Crohn's. To the best of her knowledge she did require resection of either her bowel or small bowel. the surgery was performed in [place], [place]. Patient says that since the surgery she has also had a hysterectomy as well as a ventral hernia. She says when her hernia was repaired mesh was utilized. Concerning patient's Crohn's she says she follows locally with Dr. Whittington of [facility] gastroenterology. She says she does take Humira for this but this has been on hold due to her recent hysterectomy surgery. In the emergency department the patient had a CT scan of the abdomen and pelvis. This showed distention of multiple small bowel loops most significantly at the level of the pelvis reaching a maximum diameter 3.4 cm. This was concerning for small bowel obstruction. A discrete transition point could not be identified but was felt to be in the level of the lower pelvis at the mid small bowel level. There is no inflammation to suggest an appendicitis. Postoperative changes from previous surgery near the descending colon were noted. Labs included a CBC were white blood cell count was 12.1. Hemoglobin, hematocrit, and platelet count were normal. Chemistry profile showed sodium, potassium, and creatinine were normal. Her BUN had a slight elevation at 24. There is no significant elevation of LFTs or lipase. Urinalysis did show greater than 30 white blood cells per high-power field but was negative for bacteria, nitrates, but did show 3+ leukocyte Estrace. A COVID test was performed and was noted to be negative. At the time of my interview the patient was resting comfortably in bed and she was in no distress. Allergies Allergy/AdvReac Type Severity Reaction Status Date / Time ciprofloxacin [Cipro] AdvReac Intermediate Headache Verified 02/18/21 10:56 Sulfa (Sulfonamide AdvReac Intermediate HEADACHES Verified 02/18/21 10:56 Antibiotics) ALCOHOL WIPES AdvReac Severe RASH Uncoded 02/18/21 10:56 Home Medications Medication Instructions Recorded Confirmed Type adalimumab 40 mg/0.8 mL 40 mg subcut WK 09/20/19 02/18/21 History subcutaneous syringe kit (Humira) cyanocobalamin (vitamin B-12) 1,000 mcg PO DAILY 09/20/19 02/18/21 History 1,000 mcg capsule levothyroxine 50 mcg capsule 50 mcg PO DAILY 09/20/19 02/18/21 History cholecalciferol (vitamin D3) 50 50 mcg PO DAILY 02/18/21 02/18/21 History mcg (2,000 unit) capsule (Vitamin D3) Patient History Medical History Chronic hepatitis C COVID-19 Crohn's disease Hypothyroid Polyp of colon, adenomatous Ulcer of lower limb Vasculitis Surgical History H/O colectomy Dr. Jacy Daly. Partial colectomy with anastomosis 04/03/18 H/O inguinal hernia repair History of skin surgery lesion biopsy 09/13/2000.... vasculitis and panniculitis with foci of vas cular thrombosis Hx of colonoscopy with biopsy 10/31/08 09/06/2013- Dr. Whittington 09/07/2013: Dr. Sarmiento 04/04/2014: Dr. Whittington 12/19/2014: Dr. Whittington 08/20/16: Dr. Whittington 09/09/2017: ulcerated stricture Dr. Whittington 12/14/18: DR. Whittington chronic colitis, benign polyp Tubal ligation status 1979 Family History Father Colorectal cancer Social History Smoking Status: Former smoker packs per day: 1; Years Smoked: 30; Hx Alcohol Use: Yes Alcohol type: beer Hx Substance Use: No Preferred Language: Yoruba Communication Ability: Effective [employer] Low [employer] Required: Yes Beliefs That Will Affect Care: None marital status: Current Living Situation: Spouse How many Children do You have Comment: 3 Feels Safe at Home: Yes Safety Concerns: Feels Safe At This Time Assistive Devices: Denture - Upper and Glasses Review of Systems Constitutional: no fever and no chills Eyes: no eye pain Ear, Nose, Mouth, Throat: no ear pain Respiratory: no cough and no dyspnea Cardiovascular: no chest pain Gastrointestinal: + abdominal pain, + nausea and + vomiting Genitourinary: no dysuria Musculoskeletal: + back pain (Radiating from abdomen) Integumentary: no rash Neurologic: no localized weakness Physical Exam Constitutional: WD/WN, vitals as above Eyes: no conjunctival abnormality ENMT: Ears: no hearing impairment Mouth: no oropharynx abnormality Neck: trachea midline Respiratory: normal respiratory effort, lungs clear to auscultation Cardiovascular: Rate/Rhythm: regular rate and regular rhythm Gastrointestinal (Abdomen): Patient had a well-healed midline incision of her abdomen. Her abdomen is soft, nonrigid, and not distended at the time of my exam. There is minimal pain with palpation, and no rebound tenderness or guard ing. Musculoskeletal: No calf tenderness Skin: no rashes Neurologic: moves all extremities Psychiatric: A+Ox3, euthymic affect Results & Data ([facility]) Vital Signs (Past 12 Hours) Vital Signs Temp Pulse Pulse Resp BP BP Pulse Ox 10/30/21 01:00 69 15 147/85 H 93 10/29/21 23:00 67 20 131/77 96 10/29/21 21:41 98 10/29/21 21:41 64 17 156/79 H 98 10/29/21 20:36 36.5 C 80 20 142/88 H 96 O2 Del Method 10/30/21 01:00 Room Air 10/29/21 23:00 10/29/21 21:41 Room Air 10/29/21 21:41 Room Air 10/29/21 20:36 Room Air PG Care Time/CCT Total # of Minutes Spent Total Time Spent with Patient: Total time spent is greater than 50% in coordination of care (as documented) at patient's floor/unit and/or counseling patient: Coding Level of Care Code 47947 Inpt Consult Level 5 Diagnoses Small bowel obstruction K56.609
[2021-10-30] MEDS ORDERED: ENOXAPARIN INJ 40 MG/0.4 ML SYR SQ SCH (09:00)
--- NOTE | 2021-10-30 09:33 | CT Scan Report ---
CT OF THE ABDOMEN AND PELVIS WITH CONTRAST CLINICAL HISTORY: Abdominal pain. COMPARISON STUDY: None. TECHNIQUE: Following IV administration of 93 mL of Optiray, axial images of the abdomen and pelvis we re obtained from the lung bases to the proximal femurs. Images were reviewed in the axial, sagittal, and coronal planes. IV contrast was administered without complication. Automated exposure control wa s utilized for the study. A dose lowering technique was utilized adhering to the principles of ALARA . CT DOSE: 1130.75 mGy.cm FINDINGS: Lung bases are unremarkable. No pneumatosis, free air or portal venous gas is present. Live r, adrenal glands, kidneys and pancreas are unremarkable. There is no biliary or pancreatic ductal di latation. A 1.2 cm hypodense splenic lesion is statistically benign. There are several suspected smal l splenules. There is no peripancreatic or pericholecystic stranding. The appendix is not visualized. Postoperative findings consistent with partial colectomy are noted. There are multiple loops of mild ly dilated fluid-filled mid small bowel. There is mild associated stranding and trace fluid. A well-d efined transition point is not identified however the distal small bowel is decompressed. Therefore, the findings favor a partial small bowel obstruction. There is gas within the bladder, possibly from recent instrumentation. There is no lymphadenopathy. No acute fracture or suspicious lesion within th e visualized skeletal structures. IMPRESSION: Multiple loops of mildly dilated fluid-filled mid small bowel. Small amount of associate d fluid and mild mesenteric infiltration. The findings favor a partial small bowel obstruction. ACT 112: Negative or not required by law. Electronically signed by: Bar Hauser M.D. 10/30/2021 9:32 AM
[2021-10-30] MEDS: CYANOCOBALAMIN (B-12) 500 MCG TABLET PO SCH (11:16)
[2021-10-30] MEDS: LEVOTHYROXINE SODIUM 50 MCG TABLET PO SCH (11:16)
[2021-10-30] MEDS: ENOXAPARIN INJ 40 MG/0.4 ML SYR SQ SCH (11:16)
[2021-10-30] MEDS: ACETAMINOPHEN 325 MG TAB PO PRN (11:43)
--- NOTE | 2021-10-30 12:43 | Electrocardiogram Report ---
Test Reason : Blood Pressure : / mmHG Vent. Rate : 062 BPM Atrial Rate : 062 BPM P-R Int : 150 ms QRS Dur : 078 ms QT Int : 420 ms P-R-T Axes : 063 038 057 degrees QTc Int : 426 ms Poor data quality, interpretation may be adversely affected Normal sinus rhythm Low voltage QRS Borderline ECG No previous ECGs available Confirmed by Herberth Tovar ([id number]) on 10/30/2021 12:42:34 PM Referred By: REFERRED SELF Confirmed By:Herberth Tovar
[2021-10-30] MEDS: LACTATED RINGER'S 1,000 ML IV SCH (15:11)
--- NOTE | 2021-10-30 16:03 | Hospitalist Progress Note ---
Date of Service October 30, 2021 Assessment & Plan (1) Small bowel obstruction: Plan: hx Crohn's disease with left-sided colonic stricture status post hysterectomy 5 weeks ago currently on Humira NPO and doing well Advance to clears Cont to monitor progress and consider advancing diet in am. (2) Hypothyroidism: Plan: chronic, stable, cont Synthroid per home regimen. (3) Crohn's disease: Plan: Chronic, no flare, on humira and stable. (4) DVT prophylaxis: Plan: Lovenox Full code Dispo-to home in next 1-2 days when she is tolerating PO Yudith Reddy DO [facility] Hospitalist Admission and Anticipated Discharge Date Admission Date: October 30, 2021 Subjective 66 yo Chronis patient on humira presents with partial SBO She did not require NG tube overnight and was doing well with +flatus this afternoon denies abd pain or nausea No hunger but very thirsty Cleared with surgery that it was ok to advance her diet to clears. Review of Systems Review of Systems: All systems were reviewed and negative except as indicated above. Physical Exam Physical Exam: CONSTITUTIONAL: WNWD, vitals as above, generally well- appearing, NAD EYES: normal conjunctivae, no scleral icterus, ENT: external ear and nose normal, MMM NECK: trachea midline, RESPIRATORY: clear to auscultation bilaterally, no crackles, rales or wheezes, normal respiratory effort CARDIOVASCULAR: regular rate and rhythm, S1 and 2 heard without murmurs, gallops or rubs, no JVD, no peripheral edema, CHEST: inspection of chest was normal GASTROINTESTINAL: soft, nontender, ND, no guarding MUSCULOSKELETAL: strength 5/5 throughout, head is normocephalic and atraumatic SKIN: warm and dry NEUROLOGIC: CN 2-12 grossly intact, no sensory deficit, normal cognition, nor mal speech, no tremor PSYCHIATRIC: alert cooperative and oriented to person, place and time. Results & Data Results & Data ([facility]) Vital Signs (Past 12 Hours) Vital Signs Temp Pulse Pulse Resp BP BP Pulse Ox 10/30/21 09:03 36.3 C L 70 18 147/81 H 95 10/30/21 07:22 62 18 127/72 96 10/30/21 06:50 68 14 94 10/30/21 06:40 69 15 95 10/30/21 06:30 73 16 94 10/30/21 06:20 69 18 97 10/30/21 06:10 73 14 93 10/30/21 06:00 74 17 96 10/30/21 05:50 72 15 96 10/30/21 05:40 71 12 93 10/30/21 05:30 74 14 93 10/30/21 05:20 67 13 94 10/30/21 05:10 62 12 93 10/30/21 05:00 62 14 92 10/30/21 04:50 63 12 91 10/30/21 04:40 64 13 93 10/30/21 04:30 66 14 96 10/30/21 04:20 64 20 94 10/30/21 04:15 61 12 98 10/30/21 04:15 123/68 10/30/21 04:10 59 L 12 98 10/30/21 04:18 88 16 123/68 98 O2 Del Method 10/30/21 09:03 Room Air 10/30/21 07:22 Room Air 10/30/21 06:50 10/30/21 06:40 10/30/21 06:30 10/30/21 06:20 10/30/21 06:10 10/30/21 06:00 10/30/21 05:50 10/30/21 05:40 10/30/21 05:30 10/30/21 05:20 10/30/21 05:10 10/30/21 05:00 10/30/21 04:50 10/30/21 04:40 10/30/21 04:30 10/30/21 04:20 10/30/21 04:15 10/30/21 04:15 10/30/21 04:10 10/30/21 04:18 Room Air Laboratory Results Short CBC 10/29/21 Range/Units 21:30 WBC 12.19 H (4.8-10.8) K/ul Hgb 14.8 (12.0-16.0) g/dl Hct 43.9 (34.1-44.9) % Plt Count 270 (130-400) K/uL BMP 10/29/21 21:30 Sodium 141 Potassium 3.7 Chloride 105 Carbon Dioxide 30 BUN 24 H Creatinine 1.00 Glucose 107 H Calcium 10.1 Liver Function 10/29/21 Range/Units 21:30 Total Bilirubin 0.4 (0.2-1.0) mg/dl AST 19 (13-39) U/L ALT 19 (7-52) U/L Alkaline Phosphatase 55 (34-104) U/L Albumin 4.5 (3.4-5.0) gm/dl Urine 10/30/21 Range/Units 00:22 Urine Color Yellow Urine Appearance Clear (Clear) Urine pH 6.5 (4.5-7.5) Ur Specific [place] > 1.045 H (1.000-1.030) Urine Protein Negative (Negative) Urine Glucose (UA) Negative (Negative) Diagnostic Findings Abdomen/Pelvis CT 10/29/21 21:29 CT OF THE ABDOMEN AND PELVIS WITH CONTRAST CLINICAL HISTORY: Abdominal pain. COMPARISON STUDY: None. TECHNIQUE: Following IV administration of 93 mL of Optiray, axial images of the abdomen and pelvis were obtained from the lung bases to the proximal femurs. Images were reviewed in the axial, sagittal, and coronal planes. IV contrast was administered without complication. Automated exposure control was utilized for the study. A dose lowering technique was utilized adhering to the principles of ALARA. CT DOSE: 1130.75 mGy.cm FINDINGS: Lung bases are unremarkable. No pneumatosis, free air or portal venous gas is present. Liver, adrenal glands, kidneys and pancreas are unremarkable. There is no biliary or pancreatic ductal dilatation. A 1.2 cm hypodense splenic lesion is statistically benign. There are several suspected small splenules. There is no peripancreatic or pericholecystic stranding. The appendix is not visualized. Postoperative findings consistent with partial colectomy are noted. There are multiple loops of mildly dilated fluid-filled mid small bowel. There is mild associated stranding and trace fluid. A well-defined transition point is not identified however the distal small bowel is decompressed. Therefore, the findings favor a partial small bowel obstruction. There is gas within the bladder, possibly from recent instrumentation. There is no lymphadenopathy. No acute fracture or suspicious lesion within the visualized skeletal structures. IMPRESSION: Multiple loops of mildly dilated fluid-filled mid small bowel. Small amount of associated fluid and mild mesenteric infiltration. The findings favor a partial small bowel obstruction. ACT 112: Negative or not required by law. Electronically signed by: Bar Hauser M.D. 10/30/2021 9:32 AM Medications Administered Current Inpatient Medications Acetaminophen (Acetaminophen 325 Mg Tab) 650 mg PO Q4H PRN PRN Reason: pain/fever Stop: 11/29/21 08:59 Last Admin: 10/30/21 11:43 Dose: 650 mg Cyanocobalamin (Cyanocobalamin (B-12) 500 Mcg Tablet) 1,000 mcg PO DAILY EVETTE Stop: 11/29/21 09:59 Last Admin: 10/30/21 11:16 Dose: 1,000 mcg Enoxaparin Sodium (Enoxaparin Inj 40 Mg/0.4 Ml Syr) 40 mg SQ QAM EVETTE Stop: 11/29/21 09:59 Last Admin: 10/30/21 11:16 Dose: 40 mg Promethazine HCl 12.5 mg/ (Sodium Chloride) 50.5 mls @ 202 mls/hr IV Q6H PRN PRN Reason: Nausea And Vomiting Stop: 11/29/21 01:32 Last Infusion: 10/30/21 03:03 Dose: Infused Lactated Ringer's (Lr) 1,000 mls @ 80 mls/hr IV .[id number] [facility] Stop: 11/29/21 13:59 Last Admin: 10/30/21 15:11 Dose: 80 mls/hr Ketorolac Tromethamine (Ketorolac Tromethamine 15 Mg/Ml Vial) 15 mg IV Q6H PRN PRN Reason: Pain Stop: 11/04/21 01:32 Last Admin: 10/30/21 09:14 Dose: 15 mg Levothyroxine Sodium (Levothyroxine Sodium 50 Mcg Tablet) 50 mcg PO DAILYBB [facility] Stop: 11/29/21 09:29 Last Admin: 10/30/21 11:16 Dose: 50 mcg Lorazepam (Lorazepam 0.5 Mg Tab) 0.5 mg PO TID PRN PRN Reason: Anxiety Stop: 11/29/21 01:32
[2021-10-31] MEDS: LACTATED RINGER'S 1,000 ML IV SCH (03:03)
[2021-10-31] MEDS: LEVOTHYROXINE SODIUM 50 MCG TABLET PO SCH (06:12)
[2021-10-31 07:20] LABS: Basophils # (auto) 0.04 K/uL (0-0.2); Basophils % (auto) 0.7 %; Eosinophils # (auto) 0.43 K/uL (0-0.50); Eosinophils % (auto) 7.8 %; Hematocrit (blood only) 42.1 % (34.1-44.9); Hemoglobin 13.6 g/dl (12.0-16.0); Immature Granulocytes # (auto) 0.01 K/uL (0.00-0.02); Immature Granulocytes % (auto) 0.2 %; Lymphocytes # (auto) 2.05 K/uL (1.2-3.4); Lymphocytes % (auto) 37.4 %; Mean Corpuscular Hemoglobin 28.6 pg (25.0-34.0); Mean Corpuscular Hgb Conc 32.3 g/dL (32.0-36.0); Mean Corpuscular Volume 88.6 fL (80.0-100.0); Mean Platelet Volume 10.9 fL (9.4-12.3); Monocytes # (auto) 0.45 K/uL (0.24-0.82); Monocytes % (auto) 8.2 %; Neutrophils % (auto) 45.7 %; Platelet Count 223 K/uL (130-400); RDW Coefficient of Variation 13.4 % (11.5-14.5); RDW Standard Deviation 43.8 fL (36.4-46.3); Red Blood Count 4.75 M/uL (3.93-5.22); White Blood Count 5.48 K/ul (4.8-10.8)
[2021-10-31 07:44] LABS: BUN Creatinine Ratio 14.1 (10-20); Calcium 9.1 mg/dl (8.5-10.1); Creatinine Clr Calc Pharmacy 87.1 ml/min; Est GFR (African American) 91.8 ml/min; Est GFR (Non-African American) 79.2 ml/min
[2021-10-31] MEDS: ACETAMINOPHEN 325 MG TAB PO PRN (09:28)
[2021-10-31] MEDS: ENOXAPARIN INJ 40 MG/0.4 ML SYR SQ SCH (09:29)
[2021-10-31] MEDS: CYANOCOBALAMIN (B-12) 500 MCG TABLET PO SCH (09:29)
--- NOTE | 2021-10-31 12:22 | Surgery Progress Note ---
Date of Service October 31, 2021 Assessment & Plan (1) Small bowel obstruction: Plan: F/U SBO, resolving small bowel obstruction. passe BM, pt can be discharged home today, F/U Dr. Rain 2 weeks, Admission and Anticipated Discharge Date Admission Date: October 30, 2021 Supervising Physician Co-Signing Physician Notes I personally saw and evaluated the patient with Bassam Coleman PA-C and agree with the assessment and plan. 66-year-old female with a history of partial colectomy for Crohn's disease, ventral hernia repair with mesh here with partial small bowel obstruction CT images and results personally viewed by myself, no discrete transition point seen She is currently without abdominal pain and states she is passing some flatus We will keep her n.p.o. until any significant flatus We will continue to follow her progress while she is in the hospital No plans for any surgical intervention at this time Subjective 66 yo Chronis patient on humira presents with partial SBO She did not require NG tube overnight and was doing well with +flatus this afternoon denies abd pain or nausea No hunger but very thirsty Cleared with surgery that it was ok to advance her diet to clears. 10/31/2021 12:19AM, Dr. Bhakta F/U SBO, pt is doing better , passed BM , no abdominal pain, no fever, tolerated diet, Physical Exam Constitutional: WD/WN, vitals as above Eyes: PERRL, conjunctivae normal, anicteric sclerae Neck: trachea midline, no thyromegaly Respiratory: normal respiratory effort, lungs clear to auscultation Cardiovascular: RRR, no murmur, no edema Gastrointestinal (Abdomen): soft, NT, Nd , BS +, Neurologic: patellar DTR's 2+ bilat, sensation intact Psychiatric: A+Ox3, euthymic affect Results & Data ([facility]) Vital Signs (Past 12 Hours) Vital Signs Temp Pulse Resp BP Pulse Ox O2 Del Method 10/31/21 05:52 36.6 C 59 L 18 126/78 93 Room Air
--- NOTE | 2021-10-31 12:43 | Discharge Summary ---
Discharge Summary Date of Service October 31, 2021 Notes For Next Care Provider general follow-up post discharge to ensure she is still doing well Medication Changes From Visit None Admission HPI Per Admitting Provider History obtained from patient and records. Medical history significant for HTN, hypothyroidism, Crohn's disease with left- sided colonic stricture status post surgery currently on Humira, history of vasculitis, HCV status post treatment, past tobacco abuse. Last [facility] last month under Gynecology service for elective total vaginal hysterectomy with colporrhaphy/sling procedure for incomplete uterovaginal prolapse/stress urinary incontinence. Unremarkable postop course. One day history of achy epigastric pain with nausea symptoms. Good bowel movement. No fever, no chills, no chest pain, no shortness of breath. 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 Admission Exam Per Admitting Provider Physical Exam: GENERAL: Comfortable, obese, slightly anxious, dysphonic, no respiratory distress SKIN: Normal color, warm HEENT: [place] palpebral conjunctivae, no ptosis, dry buccal mucosa NECK : Supple, short neck, no tenderness CHEST : CTA, no tenderness HEART : RRR, no obvious murmurs ABDOMEN: Some distention, minimal epigastric tenderness EXTREMITIES : No LE swelling/tenderness, no other conspicuous deformities noted NEUROLOGIC : Coherent, no facial asymmetry, no other gross focality Principal Dx & Hospital Course #1 = Principal Diagnosis (1) Small bowel obstruction: hx Crohn's disease with left-sided colonic stricture status post hysterectomy 5 weeks ago currently on Humira She did not require NG tube decompression and improved with NPO status The following day she was slowly advanced to clears and ultimately solid food without issue. She was sent home in stable condition (2) Hypothyroidism: chronic, stable, cont Synthroid per home regimen. (3) Crohn's disease: Chronic, no evidence of flare this admission, on humira and stable. Discharge Exam CONSTITUTIONAL: WNWD, vitals as above, generally well-appearing, NAD EYES: normal conjunctivae, no scleral icterus, ENT: external ear and nose normal, MMM NECK: trachea midline, RESPIRATORY: clear to auscultation bilaterally, no crackles, rales or wheezes, normal respiratory effort CARDIOVASCULAR: regular rate and rhythm, S1 and 2 heard without murmurs, gallops or rubs, no JVD, no peripheral edema, CHEST: inspection of chest was normal GASTROINTESTINAL: soft, nontender, ND, no guarding MUSCULOSKELETAL: strength 5/5 throughout, head is normocephalic and atraumatic SKIN: warm and dry NEUROLOGIC: CN 2-12 grossly intact, no sensory deficit, normal cognition, normal speech, no tremor PSYCHIATRIC: alert cooperative and oriented to person, place and time. Updated Medication List Medication Instructions Recorded Confirmed Type adalimumab 40 mg/0.8 mL 40 mg subcut WK 09/20/19 02/18/21 History subcutaneous syringe kit (Humira) cyanocobalamin (vitamin B-12) 1,000 mcg PO DAILY 09/20/19 02/18/21 History 1,000 mcg capsule levothyroxine 50 mcg capsule 50 mcg PO DAILY 09/20/19 02/18/21 History cholecalciferol (vitamin D3) 50 50 mcg PO DAILY 02/18/21 02/18/21 History mcg (2,000 unit) capsule (Vitamin D3) Hospital Stay Data Consultations 10/30/21 01:34 Consult General Surgery Routine Diagnostic Imagining Performed 10/29/21 21:29 CT abd pelvis IV con only Urgent Pending Results Patient Have Any Pending Studies at Discharge: No Discharge Instructions Given to Patient (Per Discharging Provider) Please take all medications as instructed on discharge list below. It is recommended that you follow-up with your primary care doctor within the next week to ensure you are still doing well since going home. It was a pleasure taking care of you! Please call if you have any questions or problems. You can reach a [facility] hospitalist on duty at [facility] 24 hours a day by calling [phone]. Take care of yourself. Yudith Reddy, [facility] Hospitalist Total Time Total Time Spent Total Time Spent (In Minutes): 60
== END 2021-10-31 14:03 | disposition home or self-care (01) | DRG 387 ==
LOC: ED 20:34 → 3W 10-30 01:31